=== PATIENT | female | born 1945 | race Two or more races ===

== ENCOUNTER 2019-11-05 14:27 | Emergency (ER) | payer MEDICARE, OTHER ==
[~2019-11-05] VITALS: Ht 152.4 cm; Wt 88.6 kg
--- NOTE | 2019-11-05 16:05 | NUR ---
assisting RN with pt care, pt is sleeping, resp even and unlabored, skin p/w/d, dressing to lower rt leg is dry and intact, Shirin CANTRELL at bedside to evvt pt
[2019-11-05 17:32] VITALS: BP 140/55
== END 2019-11-05 17:55 | disposition home or self-care (01) ==
LOC: ER 14:28
DX: S80.812A Abrasion, left lower leg, initial encounter (principal); M25.512 Pain in left shoulder; R42 Dizziness and giddiness; Z88.5 Allergy status to narcotic agent; W10.9XXA Fall (on) (from) unspecified stairs and steps, initial encounter; Y93.89 Activity, other specified; Y92.89 Other specified places as the place of occurrence of the external cause; Y99.9 Unspecified external cause status
CPT/HCPCS: 70450; 93005; 99284

== ENCOUNTER 2021-11-19 12:14 | Day surgery (SDC) | payer MEDICARE, OTHER ==
[2021-11-19] VITALS (12 sets, daily range): BP systolic 94–169; BP diastolic 39–100
[~2021-11-19] VITALS: Ht 152.4 cm; Wt 86.7 kg
[2021-11-19] MEDS ORDERED: fentaNYL/PF 50MCG/1 ML 2ML syringe IV ONE (12:50)
[2021-11-19] MEDS ORDERED: MIDAZolam 1mg/ml 10ml vial IV ONE (12:50)
[2021-11-19] MEDS ORDERED: normal saline 1000ml 1,000 ML IV SCH (12:50)
[2021-11-19] MEDS ORDERED: PANT40TA54 PO (13:12)
[2021-11-19] MEDS ORDERED: APIX5TAB3 PO (13:12)
[2021-11-19] MEDS ORDERED: DILT-18 PO (13:15)
[2021-11-19] MEDS ORDERED: CETI10TA19 PO (13:15)
[2021-11-19] MEDS ORDERED: MULT-1180 (13:15)
== END 2021-11-19 15:35 | disposition home or self-care (01) ==
LOC: SSTAY O 12:14
PROVIDERS: ATTEND Internal Medicine Interventional Cardiology
DX: I48.91 Unspecified atrial fibrillation (principal); I11.9 Hypertensive heart disease without heart failure; I34.0 Nonrheumatic mitral (valve) insufficiency; I27.20 Pulmonary hypertension, unspecified; Z79.899 Other long term (current) drug therapy; Z79.01 Long term (current) use of anticoagulants; Z88.8 Allergy status to other drugs, medicaments and biological substances
CPT/HCPCS: 92960; 93005; 94760; 94799; J2250; J7030

== ENCOUNTER 2025-03-06 22:23 | Emergency (ER) | payer MEDICARE, OTHER ==
[~2025-03-06] VITALS: Ht 152.4 cm; Wt 190.0 kg
[~2025-03-06 22:23] MED LIST: APIX5TAB3 PO; CETI10TA19 PO; DILT-18 PO; MULT-1180; PANT40TA54 PO
--- NOTE | 2025-03-06 22:33 | Physician Documentation ---
History of Present Illness ~ Chief Complaint: Mechanical Fall Stated Complaint: CHEST PAIN Time Seen by MD: 22:28 HPI Patient presents to the emergency room for evaluation of left upper extremity pain. Patient was not on blood thinners and denies any head strike. Patient was states she was walking in her apartment we will change tripped over a rug fallen onto her left upper extremity on an outstretched arm stating she feels like she jammed her shoulder back into her body now her entire left upper extremity he was in pain. Hand movements intact. Pulses strong. She was took 1000 mg of Tylenol just after incident which occurred 2 hours prior to arrival. Patient was declining pain medicine at this time Medication Reconciliation Allergies: Coded Allergies: Beta-Blockers (Beta-Adrenergic Bloc (Verified Allergy, Unknown, 03/06/25) Opioids - Morphine Analogues (Verified Allergy, Unknown, 03/06/25) metoprolol (Verified Allergy, Unknown, 03/06/25) Scheduled Apixaban (Eliquis), 1 TAB PO BID, (Reported) Cetirizine HCl (Cetirizine HCl), 1 TAB PO DAILY, (Reported) Diltiazem HCl (Tiazac), 240 MG PO DAILY, (Reported) Pantoprazole Sodium (Pantoprazole Sodium), 1 TAB PO DAILY, (Reported) Miscellaneous Medications Multivitamin/Iron/Folic Acid (Centrum Adults Tablet), (Reported) Review of Systems ROS All review of systems negative except as per HPI Physical Exam Physical Exam General: Patient is awake, alert, oriented x4 in mild distress Head: Normocephalic and atraumatic. Eyes: Conjunctival normal. EOMI. PERRL. ENT: Mucous membranes moist. Neck: Supple, trachea is midline. No cervical midline tenderness Chest: Clear to auscultation bilaterally without rales, rhonchi, or wheezes. There is no accessory muscle use or retractions. Cardiac: RRR without murmurs, gallops, or rubs. Extremities: Right upper extremity normal, left upper extremity held in lateral rotation with tenderness to entire arm, radial pulses intact. Patient able to move all fingers. Mild deformity noted to left shoulder Procedures Procedures Left shoulder reduction: Status post informed written consent and time-out patient was sedated using propofol with multiple aliquots administered to achieve sedation 1st 2nd and 3rd attempts were unsuccessful each time requiring additional aliquots of propofol administered. After total of 200 mg of propofol and 4th attempt at reduction patient was successfully reduced using traction on her left arm. Postprocedure x-ray confirms good alignment of bone structure without fractures. Patient was monitored until achieving appropriate awareness to maintain airway. She was neurovascularly intact status post procedure and placed in a sling. She states she was feeling much better. Progress Results/Orders Results/Orders Orders - IAM MCKENZIE MD Chest,Single View (03/06/25 23:20) Monitor (03/06/25 22:27) Saline Lock (03/06/25 22:27) Oxygen (03/06/25:27) Electrocardiogram (03/06/25:27) Hs Troponin I W Calculations (03/07/25 01:27) Elbow, Complete (3vw Min) (03/06/25 23:21) Wrist,Limited (Ap/Lat) (03/06/25 22:48) Shoulder Ltd 1 View Only (03/07/25 02:27) Shoulder Ltd 1 View Only (03/07/25 02:10) Shoulder Ltd 1 View Only (03/07/25 02:27) Completed Orders - IAM MCKENZIE MD Chest,Single View (03/06/25 23:20) Cbc/Diff (03/06/25 22:27) PBNP (03/06/25:27) CMP (03/06/25:27) Hs Troponin I W Calculations (03/06/25 22:27) Hs Troponin I W Calculations (03/07/25 00:27) Elbow, Complete (3vw Min) (03/06/25 23:21) Wrist,Limited (Ap/Lat) (03/06/25 22:48) Normal Saline 1000ml (Sodium Chloride 10 (03/06/25 23:30) Ketorolac Trometh 15mg/Ml Vial (Toradol (03/06/25 23:30) Propofol Inj (Diprivan Inj) (03/07/25 00:05) Shoulder Ltd 1 View Only (03/07/25 02:27) Shoulder Ltd 1 View Only (03/07/25 02:10) Shoulder Ltd 1 View Only (03/07/25 02:27) Medications Received in ER Medications (Trade) Dose Ordered Sig/Pacheco Route PRN Reason Start Time Stop Time Status Last Admin Dose Admin Sodium Chloride 1,000 ml @ 1,000 mls/hr ONCE ONCE IV 03/06/25 23:30 03/07/25 00:29 DC 03/07/25 00:43 1,000 MLS/HR (Toradol injection) 15 mg ONCE ONCE IV 03/06/25 23:30 03/06/25 23:33 DC 03/07/25 00:44 15 MG Vital Signs 03/06/25 03/06/25 03/07/25 03/07/25 22:26 22:36 00:07 01:12 Temp 97.6 Pulse 92 87 108 Resp 18 18 16 16 B/P (MAP) 187/109 170/90 Pulse Ox 94 99 98 O2 Delivery Nasal Cannula O2 Flow Rate 0 2.0 03/07/25 03/07/25 03/07/25 03/07/25 01:44 01:52 01:55 02:00 Pulse 9 122 107 122 Resp 21 8 0 0 B/P (MAP) 155/107 155/107 166/107 Pulse Ox 99 96 96 98 O2 Delivery Nasal Cannula Nasal Cannula Nasal Cannula O2 Flow Rate 22.0 2.0 2.0 2.0 03/07/25 03/07/25 03/07/25 03/07/25 02:05 02:10 02:15 02:20 Pulse 108 111 103 114 Resp 0 21 28 0 B/P (MAP) 188/121 135/106 108/86 108/86 Pulse Ox 98 98 98 98 O2 Delivery Nasal Cannula Nasal Cannula Nasal Cannula Nasal Cannula O2 Flow Rate 2.0 2.0 2.0 2.0 03/07/25 03/07/25 03/07/25 03/07/25 02:24 02:38 02:40 02:57 Pulse 105 119 115 105 Resp 18 15 14 13 B/P (MAP) 148/100 (116) 167/91 (116) 167/91 (116) 154/88 (110) Pulse Ox 95 99 98 96 O2 Delivery Nasal Cannula Nasal Cannula Room Air O2 Flow Rate 2.0 2.0 Laboratory Tests Test 03/06/25 22:34 03/07/25 00:54 White Blood Count 12.8 H Red Blood Count 4.29 Hemoglobin 12.4 Hematocrit 37.4 Mean Corpuscular Volume 87.2 Mean Corpuscular Hemoglobin 28.9 Mean Corpuscular Hemoglobin Concent 33.1 Red Cell Distribution Width 15.1 H Platelet Count 258 Mean Platelet Volume 9.3 Neutrophils (%) (Auto) 73.8 Lymphocytes (%) (Auto) 18.0 L Monocytes (%) (Auto) 7.2 Eosinophils (%) (Auto) 0.7 Basophils (%) (Auto) 0.3 Neutrophils # (Auto) 9.4 H Lymphocytes # (Auto) 2.3 Monocytes # (Auto) 0.9 Eosinophils # (Auto) 0.1 Basophils # (Auto) 0.0 CBC Comment Sodium Level 136 Potassium Level 4.0 Chloride Level 100 Carbon Dioxide Level 27.0 Anion Gap 9 Blood Urea Nitrogen 18 Creatinine 0.72 Estimated GFR/1.73 m2 78 BUN/Creatinine Ratio 25.0 H Glucose Level 158 H Calcium Level 9.3 Total Bilirubin 0.4 Aspartate Amino Transf (AST/SGOT) 24 Alanine Aminotransferase (ALT/SGPT) 23 Alkaline Phosphatase 122 H Troponin I High Sensitivity 6 9 Pro-B-Type Natriuretic Peptide 454 H Total Protein 7.8 Albumin 4.0 Globulin 3.8 Albumin/Globulin Ratio 1.1 Chemistry Comments Troponin I High Sens Percent Delta 50 Troponin I Hi Sens Absolute Change 3 EKG/XRAY/CT/US/VASC/MRI EKG : Additional Comment EKG interpreted by myself shows time of 12/22/2033, rate 95, atrial fibrillation, normal axis, no ST changes Medical Decision Making Findings Patient presented to the emergency room with left upper extremity pain as per HPI. Differentials include but are not limited to fractures, dislocation, soft tissue injury, tendinous rupture, rotator cuff injury. X-ray shows anterior dislocation and patient was status post reduction under procedural sedation. She was neurovascularly intact status post putting in sling. Pain controlled. No evidence of head trauma and she was not on blood thinners and he had not feel she requires CT scan of her head or neck. [place] and reports that she has significant help and she feels safe to be returned to her home. She has been instructed to follow up with her doctor tomorrow for re-evaluation and possible pain management and need for referrals. Departure Disposition: HOME / SELF CARE / HOMELESS Impression: Primary Impression: Dislocation of left shoulder joint Condition: Improved Discharge Instructions: Shoulder Dislocation Additional Instructions: It was speak with your doctor tomorrow for re-evaluation, pain management and possible need for orthopedic referral or additional imaging. Referrals: NO PRIMARY CARE PROVIDER (PCP) Education Educated: Patient Educated regarding: diagnosis, treatment, need for follow up Signature Scribe Signature: No scribe Attestation: The note accurately reflects work and decisions made by me.Iam Mckenzie MD 03/07/25 03:10 IAM MCKENZIE MD March 06, 2025 22:33
[2025-03-06 22:43] LABS: BASOPHILS % (AUTO) 0.3 % (0-1); EOSINOPHILS # (AUTO) 0.1 X10'3 (0-0.9); EOSINOPHILS % (AUTO) 0.7 % (0-6); HEMATOCRIT 37.4 % (35.0-45.0); HEMOGLOBIN 12.4 g/dl (12.0-16.0); LYMPHOCYTES # (AUTO) 2.3 X10'3 (1.1-4.8); MEAN CORPUSCULAR HEMOGLOBIN 28.9 PG (27.0-31.0); MEAN CORPUSCULAR HGB CONC 33.1 g/dL (33.0-36.5); MEAN CORPUSCULAR VOLUME 87.2 FL (78-98); MEAN PLATELET VOLUME 9.3 FL (7.4-10.4); MONOCYTES # (AUTO) 0.9 X10'3 (0-0.9); MONOCYTES % (AUTO) 7.2 % (2-12); NEUTROPHILS # (AUTO) 9.4 X10'3 (1.8-7.7); NEUTROPHILS % (AUTO) 73.8 % (42-75); PLATELET COUNT 258 X10'3 (140-440); RED BLOOD COUNT 4.29 X10'6 (4.20-5.60); RED CELL DISTRIBUTION WIDTH 15.1 % (11.5-14.5); WHITE BLOOD COUNT 12.8 X10'3 (4.5-11.0)
[2025-03-06 23:00] LABS: ALANINE AMINOTRANSFERASE 23 U/L (12-78); ALBUMIN/GLOBULIN RATIO 1.1 (1.1-1.5); ALKALINE PHOSPHATASE 122 IU/L (46-116); ANION GAP 9 (8-16); ASPARTATE AMINO TRANSFERASE 24 U/L (10-37); BILIRUBIN,TOTAL 0.4 MG/DL (0.1-1.0); BLOOD UREA NITROGEN 18 MG/DL (7-18); CALCIUM 9.3 MG/DL (8.5-10.1); CHLORIDE 100 MMOL/L (99-107); CREATININE 0.72 MG/DL (0.40-0.90); GLUCOSE 158 MG/DL (70-104); SODIUM 136 MMOL/L (135-145); TOTAL PROTEIN 7.8 G/DL (6.4-8.2); eCRCL 45 ML/MIN; eGFR 78 ML/MIN
[2025-03-06 23:06] LABS: PRO BRAIN NATRIURETIC PEPTIDE 454 PG/ML (0-450)
--- NOTE | 2025-03-07 00:16 | RADIOLOGY REPORT ---
Clinical History pain LEFT Comparison None Technique: Seven radiographs were submitted for review. Without Contrast ADRIANKEVIN JARQUIN, [id number] FINDINGS:/IMPRESSION: Many images are poorly positioned and of limited use. No true lateral image was Provided. No fracture clearly seen, however cannot definitively exclude an occult fracture without a lateral fi lm. No evidence for dislocation. This report was electronically signed by Javi Segundo MD on 03/07/2025 12:12:30 AM.
--- NOTE | 2025-03-07 00:24 | RADIOLOGY REPORT ---
Clinical History pain LEFT Comparison None Technique: Two radiographs were submitted for review. Without Contrast GUSTAVO KEVIN, [id number] FINDINGS:/IMPRESSION: Postoperative changes in the distal radius. No evidence for acute fracture or dislocation. Mild degenerative changes at first carpometacarpal joint. This report was electronically signed by Javi Segundo MD on 03/07/2025 12:20:31 AM.
--- NOTE | 2025-03-07 00:32 | RADIOLOGY REPORT ---
Clinical History chest pain Comparison None Technique: One view Without Contrast KEVIN CHEN, [id number] FINDINGS: The aorta is within normal limits. The heart size is likely enlarged. Low lung volume is identified . Osteopenia is noted. There is anterior dislocation of left shoulder. IMPRESSION: Anterior dislocation of left shoulder. Low lung volume. Likely cardiomegaly. This report was electronically signed by Manuel Flores MD on 03/07/2025 12:30:02 AM.
[2025-03-07] MEDS: normal saline 1000ml 1,000 ML IV ONE (00:43)
[2025-03-07] MEDS: ketorolac trometh 15mg/ml vial 15 MG/ML ML IV ONE (00:44)
[2025-03-07] MEDS: propofol 10mg/ml 20ml vial IV ONE (01:50)
--- NOTE | 2025-03-07 02:16 | RADIOLOGY REPORT ---
Clinical History POST RED LT SHOULDER Comparison CXR on 03/06/2025, 1 images. Technique: frontal chest x-ray Without Contrast ADRIANKEVIN JARQUIN, [id number] findings: Anterior dislocation of the left humeral head. No fracture Impression: 1. Anterior dislocation of the left humeral head This report was electronically signed by Sparkle Brizuela MD on 03/07/2025 2:12:43 AM.
--- NOTE | 2025-03-07 02:49 | RADIOLOGY REPORT ---
CLINICAL INDICATION: post reduction TECHNIQUE: DI SHOULDER LTD 1 VIEW ONLY Comparison: DI SHOULDER LTD 1 VIEW ONLY on DOS: 03/07/25 FINDINGS/IMPRESSION: : Anterior inferior subluxation of the humeral head with respect to the glenoid process of the scapula. No definite fracture is identified on these images. The visualized portions of the left lung are cl ear. No rib fractures identified.
--- NOTE | 2025-03-07 02:50 | RADIOLOGY REPORT ---
CLINICAL INDICATION: post reduction TECHNIQUE: DI SHOULDER LTD 1 VIEW ONLY Comparison: DI SHOULDER LTD 1 VIEW ONLY on DOS: 03/07/25 FINDINGS/IMPRESSION: : Successful interval reduction of the glenohumeral joint. No definite fractures identified. Degenerati ve changes of the acromioclavicular joint are noted.
[2025-03-07 05:33] VITALS: BP 149/98; PULSE 9; RESP 15; TEMP 97.6; O2SAT 100
--- NOTE | 2025-03-07 08:13 | ELECTROCARDIOGRAPH REPORT ---
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 Max Guzman Measurements Intervals [place] Rate: 95 P: 0 NM: 0 QRS: 29 QRSD: 75 T: 0 QT: 417 QTc: 525 Interpretive Statements Atrial fibrillation Low voltage, extremity and precordial leads Prolonged QT interval Electronically Signed On 03-08-2025 15:44:[address] Max Guzman Please click the below link to view image of tracing.
== END 2025-03-07 06:18 | disposition home or self-care (01) ==
LOC: ER 22:24
DX: S43.005A Unspecified dislocation of left shoulder joint, initial encounter (principal); I48.91 Unspecified atrial fibrillation; Z88.5 Allergy status to narcotic agent; W01.0XXA Fall on same level from slipping, tripping and stumbling without subsequent striking against object, initial encounter; Y93.01 Activity, walking, marching and hiking; Y92.89 Other specified places as the place of occurrence of the external cause; Y99.8 Other external cause status
CPT/HCPCS: 23650; 36415; 71045; 73020; 73080; 73100; 80053; 83880; 84484; 85025; 93005; 96361; 96374; 99152; 99153; 99285; A4565; A4620; J1885; J7030; 94760